=== PATIENT | female | born 1960 | race Caucasian/White ===

== ENCOUNTER → 2017-04-24 | Outpatient (CLI) | payer BC ==
--- NOTE | 2017-04-24 08:13 | DIAGNOSTIC IMAGING REPORT ---
LUMBAR SPINE W/O CONTRAST CLINICAL HISTORY: 56 years-old Female with R LEG, LOW BACK PAIN. Acute right leg pain and numbness without acute back pain or trauma. History of remote back surgery 17 years prior. COMPARISON: None. TECHNIQUE: Multiplanar, multi sequence MRI of the lumbar spine was performed without intravenous contrast. FINDINGS: Vertebral body heights are well-maintained without compression deformity. Small Schmorl's nodes are noted. No focal bone marrow edema, fracture or marrow replacing process. Conus medullaris terminates at the L1 level. Signal within the cord is within normal limits. No acute intra-abdominal, intrapelvic or paraspinal abnormality identified. Axial T1 images are mildly motion degraded. T12-L1: No central canal or neural foraminal stenosis. Mild endplate degenerative changes. L1-L2: No central canal or neuroforaminal stenosis. Mild endplate degenerative changes. L2-L3: Moderate facet arthropathy with ligamentum flavum thickening and small facet effusions. These changes cause mild bilateral foraminal narrowing. Central canal is patent. L3-L4: Disc desiccation is noted with 3 mm retrolisthesis L3 on L4, likely degenerative related. There is moderate facet arthropathy with small facet effusions and ligamentum flavum thickening. These changes cause mild inferior bilateral foraminal narrowing. Central canal is patent. L4-L5: Moderate intervertebral disc space narrowing with disc desiccation, moderate facet arthropathy and circumferential annular disc bulge is present. Central canal is patent. There is mild bilateral foraminal narrowing. L5-S1: Moderate intervertebral disc space narrowing with disc desiccation and circumferential annular disc bulge. Moderate facet arthropathy. Superimposed right paracentral/foraminal disc protrusion is present with annular tear causing moderate right lateral recess and moderate to severe right foraminal stenosis. This abuts and displaces the adjacent right S1 nerve root as seen on image 27 of series 6. Central canal is patent. There is moderate left foraminal stenosis. IMPRESSION: 1. At L5-S1, moderate intervertebral disc space narrowing and facet arthropathy with disc desiccation and circumferential annular disc bulge is noted in conjunction with a superimposed right paracentral/foraminal disc protrusion and annular tear causing moderate right lateral recess and moderate to severe right foraminal stenosis abutting and mildly displacing the adjacent right S1 nerve root. This may account for the patient's reported right lower extremity symptomatology. 2. Additional discogenic degenerative changes and facet arthropathy as above without high-grade central canal or foraminal narrowing. 3. No acute bony abnormality or focal bone marrow edema. The above report was generated using voice recognition software. It may contain grammatical, syntax or spelling errors. Electronically signed by: Shaan Dyer M.D. 04/24/2017 8:11 AM Dictated Date/Time: 04/24/2017 8:01 AM
== END | disposition home or self-care (01) ==
LOC: MERGE 07:15
PROVIDERS: ATTEND Orthopaedic Surgery
DX: M51.27 Other intervertebral disc displacement, lumbosacral region (principal); M51.87 Other intervertebral disc disorders, lumbosacral region; M48.07 Spinal stenosis, lumbosacral region

== ENCOUNTER → 2017-06-05 | Outpatient (CLI) | payer BC ==
[2017-06-05 13:16] LABS: ALT/SGPT 21 U/L (12-78); BLOOD UREA NITROGEN 30 mg/dl (7-18); BUN/CREATININE RATIO 28.2 (10-20); CALCIUM 9.2 mg/dl (8.5-10.1); CARBON DIOXIDE 27 mmol/L (21-32); CHLORIDE 106 mmol/L (98-107); CHOLESTEROL 212 mg/dl (0-200); CREATININE 1.05 mg/dl (0.60-1.20); GLUCOSE,FASTING 91 mg/dl (70-99); POTASSIUM 3.9 mmol/L (3.5-5.1); SODIUM 140 mmol/L (136-145)
[2017-06-05 13:18] LABS: ALKALINE PHOSPHATASE 82 U/L (45-117); AST/SGOT 8 U/L (15-37); CHOLESTEROL/HDL RATIO 3.8; HDL CHOLESTEROL 56 mg/dl; LDL CHOLESTEROL CALCULATED 125 mg/dl; TRIGLYCERIDES 154 mg/dl (0-150); VERY LOW DENSITY LIPOPROT CALC 31 mg/dl
== END | disposition home or self-care (01) ==
LOC: C.LABPBG 07:35
PROVIDERS: ATTEND Physician Assistant
DX: Z00.00 Encounter for general adult medical examination without abnormal findings (principal)